=== PATIENT | female | born 2000 | race Caucasian/White ===

== ENCOUNTER 2019-12-28 15:15 | Inpatient (IN) ==
[2019-12-28 16:15] LABS: Bilirubin,Urine Negative (Negative); Blood,Urine Small (Negative); Clarity,Urine Cloudy (Clear); Color,Urine Yellow (Yellow); Glucose,Urine (UA) Normal (Normal); Ketones,Urine Negative (Negative); Leukocyte Esterase,Urine Negative (Negative); Nitrite,Urine Negative (Negative); Protein,Urine Negative (Neg-Trace); Specific Gravity,Urine 1.021 (1.010-1.025); Urobilinogen,Urine Normal (Normal)
[2019-12-28 16:22] LABS: Basophils % 0.4 %; Eosinophils # 0.3 K/mcL (0.0-0.6); Eosinophils % 2.6 %; Hematocrit 42.9 % (35.3-44.9); Hemoglobin 14.1 g/dL (11.5-15.4); Immature Granulocytes % 0.2 % (0-4); Lymphocytes # 2.7 K/mcL (0.6-4.6); Lymphocytes % 25.2 %; Mean Corpuscular HGB Conc 32.9 g/dL (31.6-35.5); Mean Corpuscular Hemoglobin 28.4 pg (28.0-33.3); Mean Corpuscular Volume 86.5 fL (83.0-100.0); Mean Platelet Volume 9.5 fL (9.4-12.4); Monocytes # 0.8 K/mcL (0.0-1.3); Monocytes % 7.4 %; Platelet Count 328 K/mcL (140-400); Red Blood Count 4.96 M/mcL (3.82-4.97); Red Cell Distribution Width 13.3 % (11.5-14.5); Segmented Neutrophils % 64.2 %; White Blood Count 10.9 K/mcL (4.3-11.1)
[2019-12-28 16:25] LABS: Amphetamine Screen,Urine Negative ng/mL (Cutoff=1000); Barbiturate Screen,Urine Negative ng/mL (Cutoff=200); Benzodiazepines Screen,Urine Negative ng/mL (Cutoff=200); Cannabinoid Screen,Urine Positive ng/mL (Cutoff = 50); Cocaine Screen,Urine Negative ng/mL (Cutoff= 300); Opiate Screen,Urine Negative ng/mL (Cutoff=300); Phencyclidine Screen,Urine Negative ng/mL (Cutoff=25)
[2019-12-28 16:33] LABS: Bacteria,Urine Few per hpf (None-Few); Hyaline Casts,Urine None Seen per lpf (None-Few); RBC,Urine 0-3 per hpf (0-3); Squamous Epithelial Cell,Urine Many per lpf (None-Few)
[2019-12-28 16:49] LABS: Acetaminophen < 10 mcg/mL (10-20); BUN/Creatinine Ratio 19 (6-26); Blood Urea Nitrogen 10 mg/dL (6-20); Calcium 9.2 mg/dL (8.6-10.3); Carbon Dioxide 23 mEq/L (23-29); Chloride 107 mEq/L (98-107); Ethanol < 10 mg/dL (Less than 10); Glucose 97 mg/dL (70-105); Osmolality,Calculated 281 (280-300); Potassium 3.6 mEq/L (3.5-5.1); Salicylate < 2.5 mg/dL (15.0-30.0); Sodium 136 mEq/L (136-145); eGFR For African Americans > 60 (> 60); eGFR For Non-African Americans > 60 (> 60)
[2019-12-28] MEDS ORDERED: *HR* LORazepam 1 MG TABLET PO PRN (18:22)
[2019-12-28] MEDS ORDERED: Haloperidol Lactate 5 MG/ML VIAL IM PRN (18:22)
[2019-12-28] MEDS ORDERED: Mag Hydrox/Al Hydrox/Simeth 30 ML UDC PO PRN (18:22)
[2019-12-28] MEDS ORDERED: Ibuprofen 400 MG TABLET PO PRN (18:22)
[2019-12-28] MEDS ORDERED: *HR* LORazepam 2 MG/ML VIAL IM PRN (18:22)
[2019-12-28] MEDS ORDERED: haloperidoL 5 MG TABLET PO PRN (18:22)
[2019-12-28] MEDS ORDERED: traZODone 50 MG TABLET PO PRN (20:08)
[2019-12-28] MEDS: hydrOXYzine pamoate 25 MG CAPSULE PO PRN (20:42)
[2019-12-29] MEDS: FLUoxetine HCl 10 MG CAPSULE PO SCH (08:47)
[2019-12-29] MEDS: hydrOXYzine pamoate 25 MG CAPSULE PO PRN (20:13)
[2019-12-30] MEDS: FLUoxetine HCl 10 MG CAPSULE PO SCH (08:40)
[2019-12-30 09:16] VITALS: BP 123/72
== END 2019-12-30 09:10 | disposition home or self-care (01) | DRG 751 ==
LOC: EMEROOARM 15:15 → 1ANU 18:19 → INTOOBSV 18:19 → 1ANU 19:05
PROVIDERS: ADMIT Psychiatry & Neurology Psychiatry; ATTEND Psychiatry & Neurology Psychiatry